=== PATIENT | male | born 1960 | race African-American/Black ===

== ENCOUNTER 2019-03-17 14:32 | Inpatient (IN) | payer MEDICARE, MEDICAID ==
[~2019-03-17] VITALS: Ht 180.3 cm; Wt 96.2 kg
[~2019-03-17 14:32] MED LIST: ALPR2TAB2 PO; ASPI-1158 PO; BACL-141 PO; CARV3.1242 PO; DABI150C PO; DEXL60CA3 PO; DOCU-138 PO; ENAL5TAB PO; ISOS30TA47 PO; LEVE10006 PO; MAGN400T26 PO; NITR0.4T49 SL; Plavix PO; ROSU40TA PO; ZET10 PO
[2019-03-17] MEDS ORDERED: METHYLPREDNISOLONE SOD SUCC 125 MG/2 ML VIAL IV STA (15:11)
[2019-03-17] MEDS ORDERED: IPRATROPIUM BROMIDE (0.02%) 0.5MG/2.5ML NEB HHN STA (15:11)
[2019-03-17] MEDS ORDERED: ALBUTEROL (0.083%) 2.5MG/3ML NEB HHN STA (15:11)
[2019-03-17] MEDS ORDERED: SODIUM CHLORIDE 0.9% 1000ML BAG (SEPSIS BOLUS) IV ONE (15:15)
[2019-03-17] MEDS ORDERED: ASPIRIN 325MG EC TABLET PO ONE (15:15)
[2019-03-17] MEDS ORDERED: LEVOFLOXACIN 750MG PREMIX 150 ML IV ONE (15:15)
[2019-03-17 15:47] LABS: BASOPHILS % 0.4 % (0.0-2.0); EOSINOPHILS % 0.8 % (0.0-5.0); HEMATOCRIT. 41.4 % (42.0-52.0); HEMOGLOBIN. 13.7 g/dL (14.0-18.0); LYMPHOCYTES % 33.7 % (20.0-50.0); MEAN CORPUSCULAR HEMOGLOBIN 29.9 pg (28.0-32.0); MEAN CORPUSCULAR VOLUME 90.1 fL (80.0-94.0); MEAN PLATELET VOLUME 7.6 fl (7.4-10.4); MONOCYTES % 9.4 % (2.0-8.0); NEUTROPHILS % 55.7 % (40.0-76.0); PLATELET 199 x1000/uL (130-400); RED BLOOD CELL COUNT 4.59 mill/uL (4.7-6.1); RED CELL DISTRIBUTION WIDTH 13.2 % (11.6-14.6)
[2019-03-17 15:51] LABS: CHLORIDE 105 mEq/L (98-107)
[2019-03-17 15:54] LABS: PARTIAL THROMBOPLASTIN TIME 26.3 sec (23.4-31.0); PROTHROMBIN TIME 10.6 sec (9.6-11.0)
[2019-03-17 17:35] LABS: CLARITY URINE CLEAR (CLEAR); COLOR URINE YELLOW (YELLOW); KETONES URINE TRACE (NEGATIVE); LEUKOCYTE ESTERASE URINE TRACE (NEGATIVE); NITRITE URINE NEGATIVE (NEGATIVE); OCCULT BLOOD URINE NEGATIVE (NEGATIVE); PH URINE 7.5 (4.5-8.0); PROTEIN URINE NEGATIVE (NEGATIVE); SPECIFIC GRAVITY URINE 1.021 (1.005-1.030)
[2019-03-17] MEDS ORDERED: IPRATROPIUM/ALBUTEROL 0.5-3(2.5)MG/3ML NEB INH PRN (18:45)
[2019-03-17] MEDS ORDERED: CLONIDINE 0.1MG TABLET PO PRN (18:45)
[2019-03-17] MEDS ORDERED: HYDRALAZINE 20MG/ML VIAL IV PRN (18:45)
[2019-03-17] MEDS ORDERED: ONDANSETRON HCL 4MG/2ML INJ IV PRN (18:45)
[2019-03-17] MEDS ORDERED: GUAIFENESIN 200MG/10ML SUGAR FREE UDC PO PRN (18:45)
[2019-03-17] MEDS ORDERED: DIPHENHYDRAMINE 50MG/ML VIAL IV PRN (18:45)
[2019-03-17] MEDS ORDERED: MAGNESIUM/ALUMINUM HYDROXIDE/SIMETHICONE 30ML UDC PO PRN (18:45)
[2019-03-17] MEDS ORDERED: ACETAMINOPHEN 325MG TABLET PO PRN (18:45)
[2019-03-17] MEDS ORDERED: HYDROCODONE/ACETAMINOPHEN 10/325MG TABLET PO PRN (18:45)
[2019-03-17] MEDS ORDERED: NA PHOS,M-B/NA PHOS,DI-BA ENEMA 118ML PR PRN (18:45)
[2019-03-17] MEDS ORDERED: POTASSIUM CHLORIDE 20MEQ TABLET SR PO NR (20:15)
[2019-03-17] MEDS ORDERED: METHYLPREDNISOLONE SOD SUCC 125 MG/2 ML VIAL IV NR (20:15)
[2019-03-17 21:40] VITALS: BP 151/84
[2019-03-17 22:13] VITALS: BP 151/84
[2019-03-17 23:17] LABS: CREATINE KINASE 56 IU/L (39-308)
[2019-03-17 23:18] LABS: CREATINE KINASE MB FRACTION < 1.0 ng/mL (0.5-3.6)
[2019-03-17] MEDS ORDERED: CLOP75TA33 MT (23:33)
[2019-03-17] MEDS ORDERED: GABA-290 MT (23:34)
[2019-03-17] MEDS ORDERED: TAMS-11 MT (23:35)
[2019-03-18] VITALS: BP 153/67
[2019-03-18] MEDS ORDERED: FLUT1DIS6 INH
[2019-03-18] MEDS: METHYLPREDNISOLONE SOD SUCC 125 MG/2 ML VIAL IV SCH ×2 (03:35→08:48)
[2019-03-18 04:00] VITALS: BP 112/59
[2019-03-18] MEDS: SODIUM CHLORIDE 0.9% INJ 3ML FLUSH IVF SCH ×3 (05:00→22:26)
[2019-03-18 06:04] LABS: CHLORIDE 108 mEq/L (98-107)
[2019-03-18 06:12] LABS: LDL CHOLESTEROL 101 mg/dL (5-100)
[2019-03-18 06:14] LABS: CREATINE KINASE 57 IU/L (39-308); HDL CHOLESTEROL 47 mg/dL (40-59)
[2019-03-18 06:16] LABS: CREATINE KINASE MB FRACTION < 1.0 ng/mL (0.5-3.6)
[2019-03-18 06:40] LABS: HEMATOCRIT. 41.1 % (42.0-52.0); HEMOGLOBIN. 13.7 g/dL (14.0-18.0); MEAN CORPUSCULAR VOLUME 90.3 fL (80.0-94.0); MEAN PLATELET VOLUME 8.3 fl (7.4-10.4); PLATELET 203 x1000/uL (130-400); RED BLOOD CELL COUNT 4.55 mill/uL (4.7-6.1); RED CELL DISTRIBUTION WIDTH 12.9 % (11.6-14.6)
[2019-03-18 08:00] VITALS: BP 134/76
[2019-03-18] MEDS: ENOXAPARIN 30MG/0.3ML SYR SUBCUT SCH ×2 (08:48→20:38)
[2019-03-18 12:00] VITALS: BP 148/84
[2019-03-18 12:58] LABS: PLATELET ESTIMATE NORMAL
[2019-03-18] MEDS: METHYLPREDNISOLONE SOD SUCC 40 MG/ML VIAL IV SCH ×2 (15:03→22:26)
[2019-03-18 15:56] LABS: CREATINE KINASE 74 IU/L (39-308)
[2019-03-18 15:57] LABS: CREATINE KINASE MB FRACTION < 1.0 ng/mL (0.5-3.6)
[2019-03-18 15:58] LABS: T4 FREE 0.91 ng/dL (0.76-1.46)
[2019-03-18 16:00] VITALS: BP 153/78
[2019-03-18] MEDS ORDERED: LEVOFLOXACIN 500MG PREMIX 100 ML IV SCH ×2 (16:00)
[2019-03-18] MEDS ORDERED: SODIUM CHLORIDE 10% FOR INH 15ML VIAL NEB INH SCH (16:00)
[2019-03-18] MEDS: MONTELUKAST SODIUM 10MG TABLET PO SCH (17:02)
[2019-03-18] MEDS: DOCUSATE SODIUM 100MG CAPSULE PO PRN ×2 (17:16→22:26)
[2019-03-18 20:00] VITALS: BP 152/73
[2019-03-18] MEDS: LORATADINE 10MG TABLET PO SCH (20:37)
[2019-03-18] MEDS: FAMOTIDINE 20MG TABLET PO SCH (20:37)
[2019-03-18] MEDS: FLUTICASONE PROPIONATE 50MCG/SPRAY BOTTLE BOTHNSTRLS SCH (20:38)
[2019-03-18] MEDS: IPRATROPIUM/ALBUTEROL 0.5-3(2.5)MG/3ML NEB HHN SCH (21:15)
[2019-03-18 23:16] LABS: CREATINE KINASE 90 IU/L (39-308)
[2019-03-18 23:17] LABS: CREATINE KINASE MB FRACTION 1.1 ng/mL (0.5-3.6)
[2019-03-19] VITALS: BP 145/78
[2019-03-19] MEDS: ACETYLCYSTEINE 100MG/ML 10% VIAL 4ML INH SCH ×4 (01:21→16:37)
[2019-03-19] MEDS: IPRATROPIUM/ALBUTEROL 0.5-3(2.5)MG/3ML NEB HHN SCH ×6 (01:22→20:00)
[2019-03-19 04:00] VITALS: BP 133/72
[2019-03-19] MEDS: SODIUM CHLORIDE 0.9% INJ 3ML FLUSH IVF SCH ×3 (06:33→21:39)
[2019-03-19] MEDS: METHYLPREDNISOLONE SOD SUCC 40 MG/ML VIAL IV SCH ×3 (06:33→21:37)
[2019-03-19 07:15] LABS: HEMATOCRIT. 42.4 % (42.0-52.0); MEAN CORPUSCULAR HEMOGLOBIN 29.6 pg (28.0-32.0); MEAN CORPUSCULAR VOLUME 89.8 fL (80.0-94.0); MEAN PLATELET VOLUME 8.6 fl (7.4-10.4); PLATELET 227 x1000/uL (130-400); RED BLOOD CELL COUNT 4.72 mill/uL (4.7-6.1); RED CELL DISTRIBUTION WIDTH 12.9 % (11.6-14.6)
[2019-03-19 07:36] LABS: CHLORIDE 105 mEq/L (98-107)
[2019-03-19 07:54] LABS: CREATINE KINASE 83 IU/L (39-308)
[2019-03-19 07:57] LABS: CREATINE KINASE MB FRACTION < 1.0 ng/mL (0.5-3.6)
[2019-03-19 08:00] VITALS: BP 123/68
[2019-03-19] MEDS: FAMOTIDINE 20MG TABLET PO SCH ×2 (09:20→21:36)
[2019-03-19] MEDS: ENOXAPARIN 30MG/0.3ML SYR SUBCUT SCH ×2 (09:20→21:37)
[2019-03-19] MEDS: FLUTICASONE PROPIONATE 50MCG/SPRAY BOTTLE BOTHNSTRLS SCH ×2 (09:21→21:36)
[2019-03-19 10:49] LABS: PLATELET ESTIMATE NORMAL
[2019-03-19 12:00] VITALS: BP 123/63
[2019-03-19] MEDS ORDERED: DIATR MEGLU/DIATRIZOATE SOLN 30ML PO SCH (14:15)
[2019-03-19] MEDS ORDERED: GUAIFENESIN 200MG TABLET PO PRN (14:15)
[2019-03-19] MEDS ORDERED: GUAIFENESIN 200MG/10ML SUGAR FREE UDC PO PRN (14:45)
[2019-03-19 16:00] VITALS: BP 129/95
[2019-03-19] MEDS: MONTELUKAST SODIUM 10MG TABLET PO SCH (16:05)
[2019-03-19] MEDS: CLOPIDOGREL 75MG TABLET PO SCH (16:05)
[2019-03-19] MEDS: VANCOMYCIN 1250MG in DEXTROSE 5% WATER 250ML IV SCH (17:48)
[2019-03-19 20:00] VITALS: BP 118/59
[2019-03-19] MEDS: LORATADINE 10MG TABLET PO SCH (21:36)
[2019-03-20] VITALS: BP 114/56
[2019-03-20] MEDS: ACETYLCYSTEINE 100MG/ML 10% VIAL 4ML INH SCH ×4 (00:07→21:38)
[2019-03-20] MEDS: IPRATROPIUM/ALBUTEROL 0.5-3(2.5)MG/3ML NEB HHN SCH ×6 (00:11→21:35)
[2019-03-20 04:00] VITALS: BP 120/62
[2019-03-20] MEDS: VANCOMYCIN 1250MG in DEXTROSE 5% WATER 250ML IV SCH ×2 (05:30→16:41)
[2019-03-20] MEDS: SODIUM CHLORIDE 0.9% INJ 3ML FLUSH IVF SCH ×3 (05:31→21:05)
[2019-03-20] MEDS: METHYLPREDNISOLONE SOD SUCC 40 MG/ML VIAL IV SCH ×3 (05:31→21:14)
[2019-03-20 07:30] LABS: BASOPHILS % 0.1 % (0.0-2.0); HEMATOCRIT. 39.4 % (42.0-52.0); LYMPHOCYTES % 7.9 % (20.0-50.0); MEAN CORPUSCULAR HEMOGLOBIN 29.7 pg (28.0-32.0); MEAN CORPUSCULAR VOLUME 89.8 fL (80.0-94.0); MEAN PLATELET VOLUME 8.1 fl (7.4-10.4); MONOCYTES % 4.2 % (2.0-8.0); NEUTROPHILS % 87.8 % (40.0-76.0); PLATELET 238 x1000/uL (130-400); RED BLOOD CELL COUNT 4.39 mill/uL (4.7-6.1)
[2019-03-20 07:36] LABS: CHLORIDE 102 mEq/L (98-107)
[2019-03-20 08:00] VITALS: BP 131/76
[2019-03-20] MEDS: FLUTICASONE PROPIONATE 50MCG/SPRAY BOTTLE BOTHNSTRLS SCH ×2 (08:52→21:15)
[2019-03-20] MEDS: CLOPIDOGREL 75MG TABLET PO SCH (08:53)
[2019-03-20] MEDS: FAMOTIDINE 20MG TABLET PO SCH ×2 (08:53→21:03)
[2019-03-20] MEDS: ENOXAPARIN 30MG/0.3ML SYR SUBCUT SCH ×2 (08:53→21:05)
[2019-03-20 12:00] VITALS: BP 133/77
[2019-03-20 16:00] VITALS: BP 126/59
[2019-03-20] MEDS: MONTELUKAST SODIUM 10MG TABLET PO SCH (16:41)
[2019-03-20 20:00] VITALS: BP 135/71
[2019-03-20] MEDS: LORATADINE 10MG TABLET PO SCH (21:04)
[2019-03-21] MEDS: IPRATROPIUM/ALBUTEROL 0.5-3(2.5)MG/3ML NEB HHN SCH ×6 (01:25→20:56)
[2019-03-21] MEDS: VANCOMYCIN 1250MG in DEXTROSE 5% WATER 250ML IV SCH ×3 (04:58→20:50)
[2019-03-21] MEDS: METHYLPREDNISOLONE SOD SUCC 40 MG/ML VIAL IV SCH ×2 (04:58→16:42)
[2019-03-21] MEDS: SODIUM CHLORIDE 0.9% INJ 3ML FLUSH IVF SCH ×3 (04:58→20:50)
[2019-03-21 05:58] LABS: BASOPHILS % 0.1 % (0.0-2.0); HEMATOCRIT. 41.9 % (42.0-52.0); HEMOGLOBIN. 13.8 g/dL (14.0-18.0); LYMPHOCYTES % 10.8 % (20.0-50.0); MEAN CORPUSCULAR HEMOGLOBIN 29.9 pg (28.0-32.0); MEAN CORPUSCULAR VOLUME 90.4 fL (80.0-94.0); MEAN PLATELET VOLUME 8.3 fl (7.4-10.4); MONOCYTES % 5.9 % (2.0-8.0); NEUTROPHILS % 83.2 % (40.0-76.0); PLATELET 250 x1000/uL (130-400); RED BLOOD CELL COUNT 4.64 mill/uL (4.7-6.1); RED CELL DISTRIBUTION WIDTH 13.1 % (11.6-14.6)
[2019-03-21 06:24] LABS: CHLORIDE 100 mEq/L (98-107)
[2019-03-21 06:34] LABS: VANCOMYCIN TROUGH 9.3 ug/mL (5.0-10.0)
[2019-03-21 08:00] VITALS: BP 135/77
[2019-03-21] MEDS: ACETYLCYSTEINE 100MG/ML 10% VIAL 4ML INH SCH ×2 (08:56→16:15)
[2019-03-21] MEDS: FLUTICASONE PROPIONATE 50MCG/SPRAY BOTTLE BOTHNSTRLS SCH ×2 (09:41→20:50)
[2019-03-21] MEDS: ENOXAPARIN 30MG/0.3ML SYR SUBCUT SCH ×2 (09:41→20:50)
[2019-03-21] MEDS: FAMOTIDINE 20MG TABLET PO SCH ×2 (09:41→20:50)
[2019-03-21] MEDS: CLOPIDOGREL 75MG TABLET PO SCH (09:41)
[2019-03-21] MEDS: LORAZEPAM 2MG/ML CPJ IV PRN ×2 (10:07→22:30)
[2019-03-21 12:00] VITALS: BP 113/58
[2019-03-21 16:00] VITALS: BP 120/79
[2019-03-21] MEDS: MONTELUKAST SODIUM 10MG TABLET PO SCH (18:01)
[2019-03-21 20:00] VITALS: BP 148/85
[2019-03-21] MEDS: LORATADINE 10MG TABLET PO SCH (20:50)
[2019-03-22] VITALS: BP 115/64
[2019-03-22] MEDS: ACETYLCYSTEINE 100MG/ML 10% VIAL 4ML INH SCH ×5 (01:30→23:54)
[2019-03-22] MEDS: IPRATROPIUM/ALBUTEROL 0.5-3(2.5)MG/3ML NEB HHN SCH ×7 (01:31→23:54)
[2019-03-22 04:00] VITALS: BP 110/61
[2019-03-22] MEDS: SODIUM CHLORIDE 0.9% INJ 3ML FLUSH IVF SCH ×3 (04:23→22:10)
[2019-03-22] MEDS: VANCOMYCIN 1250MG in DEXTROSE 5% WATER 250ML IV SCH ×3 (04:23→22:08)
[2019-03-22] MEDS: CLOPIDOGREL 75MG TABLET PO SCH (09:15)
[2019-03-22] MEDS: FAMOTIDINE 20MG TABLET PO SCH ×2 (09:15→22:09)
[2019-03-22] MEDS: METHYLPREDNISOLONE SOD SUCC 40 MG/ML VIAL IV SCH ×2 (09:15→17:32)
[2019-03-22] MEDS: ENOXAPARIN 30MG/0.3ML SYR SUBCUT SCH ×2 (09:15→22:09)
[2019-03-22 11:44] VITALS: BP 133/75
[2019-03-22] MEDS: LORAZEPAM 2MG/ML CPJ IV PRN (13:57)
[2019-03-22 16:01] VITALS: BP 117/72
[2019-03-22] MEDS: MONTELUKAST SODIUM 10MG TABLET PO SCH (17:31)
[2019-03-22 20:00] VITALS: BP 101/54
[2019-03-22] MEDS: LORATADINE 10MG TABLET PO SCH (22:09)
[2019-03-22] MEDS: DOCUSATE SODIUM 100MG CAPSULE PO PRN (22:11)
[2019-03-23] VITALS: BP 137/73
[2019-03-23 04:00] VITALS: BP 126/62
[2019-03-23] MEDS: IPRATROPIUM/ALBUTEROL 0.5-3(2.5)MG/3ML NEB HHN SCH ×3 (04:12→13:10)
[2019-03-23] MEDS: SODIUM CHLORIDE 0.9% INJ 3ML FLUSH IVF SCH ×2 (05:41→13:55)
[2019-03-23] MEDS: VANCOMYCIN 1250MG in DEXTROSE 5% WATER 250ML IV SCH ×2 (05:41→13:19)
[2019-03-23 08:00] VITALS: BP 121/72
[2019-03-23] MEDS: ACETYLCYSTEINE 100MG/ML 10% VIAL 4ML INH SCH (08:27)
[2019-03-23] MEDS: METHYLPREDNISOLONE SOD SUCC 40 MG/ML VIAL IV SCH (08:46)
[2019-03-23] MEDS: CLOPIDOGREL 75MG TABLET PO SCH (08:46)
[2019-03-23] MEDS: FAMOTIDINE 20MG TABLET PO SCH (08:46)
[2019-03-23] MEDS: ENOXAPARIN 30MG/0.3ML SYR SUBCUT SCH (08:46)
[2019-03-23 12:02] VITALS: BP 138/70
[2019-03-23 15:25] VITALS: BP 150/91
[2019-03-23 16:00] VITALS: BP 150/91
== END 2019-03-23 17:05 | disposition home or self-care (01) | DRG 871 ==
LOC: ER 14:32 → 5WST 16:57 → EDBEDREQTM 17:11 → EDBEDREQ 17:11 → ENRESERV 20:35
PROVIDERS: ADMIT Internal Medicine; ATTEND Internal Medicine
DX: A41.9 Sepsis, unspecified organism (principal); J96.00 Acute respiratory failure, unspecified whether with hypoxia or hypercapnia; J44.1 Chronic obstructive pulmonary disease with (acute) exacerbation; N39.0 Urinary tract infection, site not specified; J98.11 Atelectasis; I50.32 Chronic diastolic (congestive) heart failure; I69.354 Hemiplegia and hemiparesis following cerebral infarction affecting left non-dominant side; Q78.2 Osteopetrosis; I11.0 Hypertensive heart disease with heart failure; G40.909 Epilepsy, unspecified, not intractable, without status epilepticus; K64.9 Unspecified hemorrhoids; F32.9 Major depressive disorder, single episode, unspecified; F41.9 Anxiety disorder, unspecified; K27.9 Peptic ulcer, site unspecified, unspecified as acute or chronic, without hemorrhage or perforation; N20.0 Calculus of kidney; K76.0 Fatty (change of) liver, not elsewhere classified; K43.9 Ventral hernia without obstruction or gangrene; K21.9 Gastro-esophageal reflux disease without esophagitis; J06.9 Acute upper respiratory infection, unspecified; E78.5 Hyperlipidemia, unspecified; H91.90 Unspecified hearing loss, unspecified ear; I25.10 Atherosclerotic heart disease of native coronary artery without angina pectoris; G89.29 Other chronic pain; M54.5 Low back pain; I83.90 Asymptomatic varicose veins of unspecified lower extremity; M48.02 Spinal stenosis, cervical region; N28.1 Cyst of kidney, acquired; Z79.02 Long term (current) use of antithrombotics/antiplatelets; Z99.81 Dependence on supplemental oxygen; Z95.5 Presence of coronary angioplasty implant and graft; Z87.891 Personal history of nicotine dependence; Z86.711 Personal history of pulmonary embolism; I25.2 Old myocardial infarction; Z79.899 Other long term (current) drug therapy; Z86.14 Personal history of Methicillin resistant Staphylococcus aureus infection; Z86.718 Personal history of other venous thrombosis and embolism; Z87.11 Personal history of peptic ulcer disease; Z88.5 Allergy status to narcotic agent; Z88.8 Allergy status to other drugs, medicaments and biological substances
CPT/HCPCS: 36415; 71045; 71250; 74176; 76770; 80048; 80061; 80202; 82550; 82553; 82962; 83036; 83605; 83880; 84145; 84439; 84443; 84484; 85379; 85651; 87070; 87430; 93005; 93306; 93970; 94640; 94644; 96365; 96375; 99285; J1650; J1956; J2060; J2920; J2930; J3370; J7030; J7050; J7060; J7131; J7608; J7611; J7620

== ENCOUNTER 2022-01-17 13:37 | Inpatient (IN) | payer MEDICARE, MEDICAID ==
[~2022-01-17] VITALS: Ht 180.3 cm; Wt 105.7 kg
[~2022-01-17 13:37] MED LIST changes: -ASPI-1158 PO; +ASPI-1406 PO; +CLOP75TA33 MT; -DOCU-138 PO; -ENAL5TAB PO; +ENAL5TAB21 PO; +FLUT1DIS6 INH; +GABA-290 MT; -ISOS30TA47 PO; -Plavix PO; +TAMS-11 MT; -ZET10 PO
[2022-01-17 15:12] LABS: BASOPHILS % 0.5 % (0.0-2.0); EOSINOPHILS % 1.9 % (0.0-5.0); HEMATOCRIT. 40.1 % (42.0-52.0); HEMOGLOBIN. 13.5 g/dL (14.0-18.0); LYMPHOCYTES % 36.7 % (20.0-50.0); MEAN CORPUSCULAR HEMOGLOBIN 29.9 pg (28.0-32.0); MEAN PLATELET VOLUME 7.5 fl (7.4-10.4); NEUTROPHILS % 50.9 % (40.0-76.0); PLATELET 195 x1000/uL (130-400); RED BLOOD CELL COUNT 4.51 mill/uL (4.7-6.1); RED CELL DISTRIBUTION WIDTH 12.9 % (11.6-14.6)
[2022-01-17 15:16] LABS: CHLORIDE 110 mEq/L (98-107)
[2022-01-17] MEDS: NITROGLYCERIN 0.4MG TABLET SL SL ONE ×2 (17:12→17:19)
[2022-01-17] MEDS ORDERED: ACETAMINOPHEN 325MG TABLET PO ONE (17:15)
[2022-01-17] MEDS ORDERED: NITROGLYCERIN 0.4MG TABLET SL SL PRN (18:30)
[2022-01-17] MEDS ORDERED: MAGNESIUM/ALUMINUM HYDROXIDE/SIMETHICONE 30ML UDC PO PRN (18:30)
[2022-01-17] MEDS ORDERED: IPRATROPIUM/ALBUTEROL 0.5-3(2.5)MG/3ML NEB NEB PRN (18:30)
[2022-01-17] MEDS ORDERED: ACETAMINOPHEN 325MG TABLET PO PRN ×2 (18:30)
[2022-01-17] MEDS ORDERED: DOCUSATE SODIUM 100MG CAPSULE PO PRN (18:30)
[2022-01-17] MEDS ORDERED: CLONIDINE 0.1MG TABLET PO PRN (18:30)
[2022-01-17] MEDS ORDERED: GUAIFENESIN 200MG/10ML SUGAR FREE UDC PO PRN (18:30)
[2022-01-17] MEDS ORDERED: ENOXAPARIN 40MG/0.4ML SYR SUBCUT SCH (18:30)
[2022-01-17] MEDS ORDERED: ZOLPIDEM TARTRATE 5MG TABLET PO PRN (18:30)
[2022-01-17 19:06] LABS: ETHANOL BLOOD < 10 mg/dL; HDL CHOLESTEROL 41 mg/dL (40-59); LDL CHOLESTEROL 96 mg/dL (5-100); TOTAL IRON BINDING CAPACITY 281 ug/dL (250-450)
[2022-01-17] MEDS ORDERED: IOHEXOL-350 100 ML BOTTLE ONE (19:08)
[2022-01-17 19:18] LABS: FOLIC ACID (FOLATE) SERUM 10.6 ng/mL (>5.38)
[2022-01-17] MEDS ORDERED: ASPIRIN 325MG EC TABLET PO ONE (19:30)
[2022-01-17] MEDS: FAMOTIDINE 20MG TABLET PO SCH (21:29)
[2022-01-17] MEDS ORDERED: ASPIRIN 325MG EC TABLET PO SCH (21:30)
[2022-01-17] MEDS: ENOXAPARIN 30MG/0.3ML SYR SUBCUT SCH (21:33)
[2022-01-17 21:34] LABS: *AMPHETAMINES SCREEN URINE NEGATIVE (NEGATIVE); *BARBITURATES SCREEN URINE NEGATIVE (NEGATIVE); *BENZODIAZEPINES SCREEN URINE NEGATIVE (NEGATIVE); *COCAINE SCREEN URINE PRESUMTIVE POSITIVE (NEGATIVE); CANNABINOID URINE SCREEN PRESUMTIVE POSITIVE (NEGATIVE); METHADONE URINE SCREEN NEGATIVE (NEGATIVE); OPIATES URINE SCREEN NEGATIVE (NEGATIVE); PHENCYCLIDINE URINE SCREEN NEGATIVE (NEGATIVE)
[2022-01-17 22:53] LABS: CREATINE KINASE 84 IU/L (39-308); CREATINE KINASE MB FRACTION < 1.0 ng/mL (0.5-3.6)
[2022-01-17 22:57] VITALS: BP 122/65
[2022-01-17 23:03] VITALS: BP 122/65
[2022-01-17] MEDS: DILTIAZEM HCL 60MG TABLET PO SCH (23:16)
[2022-01-17] MEDS: KETOROLAC 15MG/ML VIAL IV PRN (23:17)
[2022-01-17] MEDS: ONDANSETRON HCL 4MG/2ML INJ IV PRN (23:17)
[2022-01-18] VITALS: BP 118/55
[2022-01-18 04:00] VITALS: BP 113/59
[2022-01-18] MEDS: KETOROLAC 15MG/ML VIAL IV PRN (07:06)
[2022-01-18] MEDS: ONDANSETRON HCL 4MG/2ML INJ IV PRN (07:06)
[2022-01-18] MEDS: DILTIAZEM HCL 60MG TABLET PO SCH ×2 (07:06→12:00)
[2022-01-18] MEDS: ENOXAPARIN 30MG/0.3ML SYR SUBCUT SCH (07:54)
[2022-01-18 08:00] VITALS: BP 103/56
[2022-01-18 08:10] LABS: CHLORIDE 111 mEq/L (98-107)
[2022-01-18 08:18] LABS: BASOPHILS % 0.6 % (0.0-2.0); EOSINOPHILS % 2.5 % (0.0-5.0); HEMATOCRIT. 40.2 % (42.0-52.0); HEMOGLOBIN. 13.3 g/dL (14.0-18.0); LYMPHOCYTES % 57.7 % (20.0-50.0); MEAN CORPUSCULAR HEMOGLOBIN 29.5 pg (28.0-32.0); MEAN CORPUSCULAR VOLUME 89.5 fL (80.0-94.0); MONOCYTES % 8.9 % (2.0-8.0); NEUTROPHILS % 30.3 % (40.0-76.0); PLATELET 202 x1000/uL (130-400); RED BLOOD CELL COUNT 4.49 mill/uL (4.7-6.1)
[2022-01-18 08:21] LABS: CREATINE KINASE 106 IU/L (39-308); CREATINE KINASE MB FRACTION < 1.0 ng/mL (0.5-3.6); PHOSPHORUS 3.3 mg/dL (2.5-4.9)
[2022-01-18] MEDS: FAMOTIDINE 20MG TABLET PO SCH (08:46)
[2022-01-18] MEDS ORDERED: ASPIRIN 325MG EC TABLET PO SCH (09:00)
[2022-01-18 09:23] VITALS: BP 103/56
[2022-01-18 12:00] VITALS: BP 136/75
== END 2022-01-18 15:00 | disposition home or self-care (01) | DRG 918 ==
LOC: ER 13:37 → 7EST 18:45 → EDBEDREQ 18:59 → EDBEDREQTM 18:59 → ENRESERV 20:57
PROVIDERS: ADMIT Internal Medicine; ATTEND Internal Medicine
DX: T40.5X1A Poisoning by cocaine, accidental (unintentional), initial encounter (principal); J44.9 Chronic obstructive pulmonary disease, unspecified; I50.9 Heart failure, unspecified; I11.0 Hypertensive heart disease with heart failure; F14.10 Cocaine abuse, uncomplicated; D63.8 Anemia in other chronic diseases classified elsewhere; E78.00 Pure hypercholesterolemia, unspecified; I25.10 Atherosclerotic heart disease of native coronary artery without angina pectoris; Z86.73 Personal history of transient ischemic attack (TIA), and cerebral infarction without residual deficits; Z95.5 Presence of coronary angioplasty implant and graft; I25.2 Old myocardial infarction; Z86.718 Personal history of other venous thrombosis and embolism; Z88.5 Allergy status to narcotic agent; Z79.899 Other long term (current) drug therapy; Z79.82 Long term (current) use of aspirin; Z79.02 Long term (current) use of antithrombotics/antiplatelets; Z86.14 Personal history of Methicillin resistant Staphylococcus aureus infection; Y92.89 Other specified places as the place of occurrence of the external cause
CPT/HCPCS: 36415; 71045; 71275; 80053; 80061; 80305; 80320; 82550; 82553; 82607; 82746; 83036; 83540; 83550; 83735; 83880; 84100; 84443; 84484; 85025; 93005; 93970; 93971; 99291; J1650; J1885; J2405; Q9967; G0480

== ENCOUNTER 2022-07-15 10:19 | Emergency (ER) | payer MEDICARE, MEDICAID ==
[~2022-07-15] VITALS: Ht 180.3 cm; Wt 101.0 kg
[2022-07-15 12:04] LABS: BASOPHILS % 0.7 % (0.0-2.0); EOSINOPHILS % 1.6 % (0.0-5.0); HEMOGLOBIN. 13.3 g/dL (14.0-18.0); LYMPHOCYTES % 31.9 % (20.0-50.0); MEAN CORPUSCULAR HEMOGLOBIN 29.9 pg (28.0-32.0); MEAN PLATELET VOLUME 8.1 fl (7.4-10.4); NEUTROPHILS % 55.8 % (40.0-76.0); PLATELET 190 x1000/uL (130-400); RED BLOOD CELL COUNT 4.44 mill/uL (4.7-6.1); RED CELL DISTRIBUTION WIDTH 13.4 % (11.6-14.6)
[2022-07-15 12:06] LABS: CHLORIDE 105 mEq/L (98-107)
[2022-07-15 12:37] LABS: CLARITY URINE CLEAR (CLEAR); COLOR URINE YELLOW (YELLOW); KETONES URINE TRACE (NEGATIVE); LEUKOCYTE ESTERASE URINE NEGATIVE (NEGATIVE); NITRITE URINE NEGATIVE (NEGATIVE); OCCULT BLOOD URINE NEGATIVE (NEGATIVE); PROTEIN URINE NEGATIVE (NEGATIVE); SPECIFIC GRAVITY URINE 1.029 (1.005-1.030)
[2022-07-15] MEDS ORDERED: ONDANSETRON HCL 4MG/2ML INJ IV ONE (13:00)
[2022-07-15] MEDS ORDERED: PANTOPRAZOLE SODIUM 40 MG/VIAL IV NR (13:15)
[2022-07-15] MEDS ORDERED: LIDOCAINE 5% PATCH TOP SCH (14:45)
[2022-07-15] MEDS ORDERED: HYDROCODONE/ACETAMINOPHEN 5/325MG TABLET PO NR (14:45)
[2022-07-15] MEDS ORDERED: DICY10CA88 MT (16:20)
[2022-07-15] MEDS ORDERED: T3 PO (16:20)
[2022-07-15] MEDS ORDERED: ONDA4TAB50 MT (16:21)
[2022-07-15 17:04] VITALS: BP 120/81
== END 2022-07-15 17:20 | disposition home or self-care (01) ==
LOC: ER 10:49
DX: R10.31 Right lower quadrant pain (principal); I25.2 Old myocardial infarction; I10 Essential (primary) hypertension; E78.00 Pure hypercholesterolemia, unspecified; J44.1 Chronic obstructive pulmonary disease with (acute) exacerbation; Z98.890 Other specified postprocedural states; Z79.899 Other long term (current) drug therapy; Z86.73 Personal history of transient ischemic attack (TIA), and cerebral infarction without residual deficits
CPT/HCPCS: 36415; 71045; 74177; 80053; 81003; 83880; 84484; 85025; 93005; 96374; 96375; 99285; C9113; J2405